=== PATIENT | male | born 1970 | race Caucasian/White ===

== ENCOUNTER → 2017-12-29 | Outpatient (CLI) | payer OTHER | END | disposition home or self-care (01) | LOC: LAB 18:53 | PROVIDERS: ATTEND Family Medicine | DX: R06.02 Shortness of breath (principal) | CPT/HCPCS: 36415; 85379 ==

== ENCOUNTER → 2018-12-02 | Outpatient (CLI) | payer OTHER ==
[~2018-12-02] MED LIST: IOHEXOL 240 MG/ML 50ML VIAL. ONE
[2018-12-02 13:50] LABS: CREATININE 0.8 mg/dL (0.7-1.3); GFR 103.6
[2018-12-02] MEDS: IOHEXOL 300 MG/ML 75 ML VIAL. IV ONE (14:20)
--- NOTE | 2018-12-02 14:36 | RAD ---
PQRS Compliance Statement: One or more of the following individualized dose reduction techniques were utilized for this examination: 1. Automated exposure control 2. Adjustment of the mA and/or kV according to patient size 3. Use of iterative reconstruction technique CT abdomen/pelvis with contrast 12/02/2018 2:18 PM INDICATION: Abdominal pain with nausea and vomiting. COMPARISON: None available TECHNIQUE: Multiple axial CT images of the abdomen and pelvis were obtained after the intravenous administration of 75 mL Omnipaque 300. Coronal and sagittal reformats are provided. FINDINGS: Visualized portions of the lung bases are clear. Heart size is within normal limits. No suspicious hepatic masses are identified. Liver is homogeneous in enhancement. Spleen, bilateral adrenal glands, and pancreas are normal in appearance. Gallbladder is present without adjacent inflammatory changes. The abdominal aorta is normal in course and caliber. There are no pathologically enlarged lymph nodes in the abdomen and pelvis. There is no abdominal free fluid. There is no free intraperitoneal air. The kidneys enhance symmetrically. There is mild left hydronephrosis. There is a 2 mm calculus at the left ureterovesicular junction. No additional calculi are identified. Oral contrast was administered. Opacified bowel loops demonstrate normal mucosal fold pattern. Small and large bowel are normal in caliber. There is no evidence for bowel obstruction. There are no pericolonic inflammatory changes. A normal, nondilated appendix is visualized without adjacent inflammatory changes. Prostate and urinary bladder within normal limits. Seminal vesicles are present. No suspicious osseous abnormality is identified. IMPRESSION: There is a 2 mm calculus at the left ureterovesicular junction. There is mild left hydronephrosis. Electronically signed by: Lucy Silver MD (12/02/2018 2:32 PM) [id number]
== END | disposition home or self-care (01) ==
LOC: CT 13:13
PROVIDERS: ATTEND Nurse Practitioner Family
DX: N13.2 Hydronephrosis with renal and ureteral calculous obstruction (principal); I10 Essential (primary) hypertension; E11.65 Type 2 diabetes mellitus with hyperglycemia; K52.89 Other specified noninfective gastroenteritis and colitis
CPT/HCPCS: 36415; 74177; 82565; 84520; Q9966; Q9967

== ENCOUNTER 2019-06-08 08:26 | Inpatient (IN) | payer OTHER ==
[~2019-06-08] VITALS: Ht 196.8 cm; Wt 91.8 kg
--- NOTE | 2019-06-08 08:30 | NUR ---
The patient, TERENCE SNOW, 49 y/o, M admitted by FERNANDO MAJOR MD, DIRECTLY d/t abdominal pain. Pt stated pain started on Friday, at which time pt went to an emergency room and was discharged (no further information at this time). Pt began having coffee ground emesis on Friday, and became aware of emesis and called Dr. Major on Friday morning. Dr. Major directly admitted pt to at that time. Pt brought to 105, accompanied by , in a WC by Dee Dee at approx [phone]. Pt settled into bed, A&Ox4, pain of 5/10 to abdomen for which Dr. Major ordered Fentanyl 50mcg IVP q2. Pt was given written information regarding hospital policies, unit procedures and contact persons. Sylwia Andrew RN
[2019-06-08 08:44] VITALS: BP 125/83
[2019-06-08 09:36] LABS: BASO % 1 % (0-3); EOS # 0.1 x10^3/uL (0.0-0.7); EOS % 2 % (0-3); HEMATOCRIT 44.4 % (39.0-53.0); LYMPH # 1.4 x10^3/uL (1.0-4.8); LYMPH % 17 % (24-48); MEAN CORPUSCULAR HEMOGLOBIN 31 pg (25-35); MEAN CORPUSCULAR HGB CONC 34 g/dL (31-37); MEAN CORPUSCULAR VOLUME 92 fL (79-100); MONO # 0.7 x10^3/uL (0.0-1.1); MONO % 9 % (0-9); NEUT # 6.1 x10^3uL (1.8-7.7); NEUT % 72 % (31-73); PLATELET COUNT 224 x10^3/uL (140-400); RED BLOOD COUNT 4.85 x10^6/uL (4.30-5.70); RED CELL DISTRIBUTION WIDTH 13.8 % (11.5-14.5); WHITE BLOOD COUNT 8.4 x10^3/uL (4.0-11.0)
[2019-06-08 09:52] LABS: ALBUMIN 3.8 g/dL (3.4-5.0); ALBUMIN/GLOBULIN RATIO 1.2 (1.0-1.7); CALCIUM 9.6 mg/dL (8.5-10.1); CREATININE 1.1 mg/dL (0.7-1.3); GFR 71.4; POTASSIUM 4.4 mmol/L (3.5-5.1); TOTAL BILIRUBIN 0.8 mg/dL (0.2-1.0)
[2019-06-08] MEDS ORDERED: PANTOPRAZOLE IV 80 MG in IV NORMAL SALINE 100ML 100 ML IV SCH (10:00)
[2019-06-08] MEDS ORDERED: IOHEXOL 350 MG/ML 100 ML VIAL. IV ONE (10:00)
[2019-06-08 11:25] LABS: BILIRUBIN,URINE NEG (NEG); CLARITY,URINE CLEAR; COLOR,URINE YELLOW; GLUCOSE,URINE NEG (NEG); NITRITE,URINE NEG (NEG); RBC,URINE OCC /HPF (0-2); UROBILINOGEN,URINE 0.2 mg/dL (0.2 mg/dL)
[2019-06-08 11:26] LABS: BACTERIA,URINE 0 /HPF (0-FEW); SQUAMOUS EPITHELIAL CELL,UR OCC /LPF
[2019-06-08] MEDS: IV NORMAL SALINE 1,000ML 1,000 ML IV SCH ×2 (11:31→18:28)
--- NOTE | 2019-06-08 12:19 | NUR ---
Results not yet back for URGENT CT. Called Myrtle in Radiology, she will check on status. MOO. Sylwia Andrew RN
--- NOTE | 2019-06-08 12:52 | RAD ---
Examination: CT ANGIO CHEST ABD PELVIS History: Abdominal pain, nausea, vomiting Comparison/Correlation: 12/02/2018 CT abdomen and pelvis with oral contrast Findings: Axial images of chest, abdomen, and pelvis were obtained following IV contrast. Sagittal and coronal reformatted images were provided. Dobbhoff tube tip terminates approximately 5.5 cm past the gastroesophageal junction. Sternal wires are present. No infiltrate or pleural effusion. No pneumothorax. Tracheobronchial tree is unremarkable. Calcified granulomas involve the costophrenic sulci. No enlarged thoracic lymph nodes. Thoracic aorta is unremarkable. Pulmonary arterial vasculature is very well-opacified with no findings of thromboembolic disease. No pulmonary nodule or mass. No pleural or pericardial effusion. Liver, spleen, pancreas, and adrenal glands are normal. Subtle hypoenhancement of the right and left renal cortices superiorly noted. No mass lesion or loculated collection. No hydronephrosis or hydroureter. No enlarged abdominal or pelvic lymph nodes. Moderate quantity of stool in the colon noted. Appendix is normal. No bowel obstruction. Diverticulosis of the colon is present without acute inflammation. Urinary bladder is unremarkable. Prostate gland is mildly enlarged measuring 5 cm transverse. Bony structures are unremarkable. Bone island involves the proximal left femur. Impression: Hypoenhancement of the renal cortices superiorly in particular. This is of indeterminate significance. Correlate for underlying inflammatory process including pyelonephritis. No loculated collection or mass. Diverticulosis. No infiltrate. PQRS Compliance Statement: One or more of the following individualized dose reduction techniques were utilized for this examination: 1. Automated exposure control 2. Adjustment of the mA and/or kV according to patient size 3. Use of iterative reconstruction technique Electronically signed by: Armando Paz MD (06/08/2019 12:49 PM) [facility]
--- NOTE | 2019-06-08 13:00 | NUR ---
Dr. Chaparro notified via telephone of results for CT. Sylwia Andrew RN
[2019-06-08 16:06] VITALS: BP 142/92
[2019-06-08] MEDS ORDERED: INSULIN LISPRO 300 UNITS/3 ML INSULN.PEN. SQ SCH (17:00)
[2019-06-08] MEDS ORDERED: DEXTROSE 50% 25 GM / 50ML DISP.SYRIN. IV PRN (17:00)
[2019-06-08 17:45] LABS: GASTRIC OB PAT POSITIVE (NEG)
[2019-06-08] MEDS ORDERED: PROCHLORPERAZINE 10 MG/2 ML VIAL. IV PRN (17:45)
[2019-06-08 19:13] VITALS: BP 147/93
--- NOTE | 2019-06-08 21:50 | NUR ---
PT transferred to [facility] for higher level of care. PT calm and cooperative at time of discharge. will meet PT at [facility] with DM medications not available at [facility]. Mi and NG tube removed prior to transport. PT only on NS at 200/hr.
[2019-06-09] MEDS ORDERED: PANTOPRAZOLE 40 MG TABLET. PO SCH (07:30)
--- NOTE | 2019-06-09 12:55 | DS ---
DATE OF DISCHARGE: 06/08/2019 HOSPITAL COURSE: A 49-year-old male who has been ill for the last week with abdominal pain and had been seen in the Emergency Room at [facility], told me he had a ventral hernia and that he was in lot of pain, but no obstruction; however, the pain got increasingly worse. He was doubled over with pain with nausea and vomiting, unable to keep anything down and was also bringing up bloody material. As a result of this, the patient was seen and admitted to the hospital for further evaluation and treatment thereof of that situation. An NG tube was placed. He also had trouble urinating. Bladder scan showed 800 mL in his bladder, so we put a Mi catheter in as well. The patient along with IV Protonix and fluids, rehydrated and we felt him somewhat better, but still had bouts of nausea and vomiting. Consequently, he was transferred to another facility and they could offer him GI clearance that we did not have here. Otherwise, the patient made relatively good progress. He remained basically stable in terms of his vital signs. He had a slightly low iron of 61. Blood sugars were up and down and around. He did have gastric occult blood positive. The patient was stabilized and transferred to [facility] for Gastroenterology Consultation IMPRESSION: Acute gastrointestinal bleed, epigastric pain progressively worse. PLAN: As above. Continue to monitor the patient after he returns and continue on home medications as indicated per those results. He was having n.p.o. when he left. FERNANDO MAJOR MD DR: KENISHA/agustin JOB#: [id number] / [id number]
--- NOTE | 2019-06-09 13:42 | EKG ---
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
== END 2019-06-08 21:35 | disposition short-term general hospital (02) | DRG 379 ==
LOC: 1 SOUTH 08:26
PROVIDERS: ADMIT Family Medicine; ATTEND Family Medicine
DX: K92.2 Gastrointestinal hemorrhage, unspecified (principal); K43.9 Ventral hernia without obstruction or gangrene; Z79.899 Other long term (current) drug therapy; Z88.0 Allergy status to penicillin; Z88.8 Allergy status to other drugs, medicaments and biological substances
CPT/HCPCS: 36415; 71275; 74174; 80053; 81001; 82150; 82271; 82947; 83540; 83550; 83605; 84145; 85025; 85379; 85610; 86850; 86900; 86901; 93005; C9113; J0780; J1815; J3010; Q9967; J7030

== ENCOUNTER → 2020-05-15 | Outpatient (CLI) | payer OTHER ==
--- NOTE | 2020-05-15 15:57 | RAD ---
CT SOFT TISSUE NECK WO CONTRST Indication: Abnormal thyroid function tests, dysphagia Technique: Postcontrast CT imaging was performed of the neck, multiplanar reconstruction images submitted. One or more of the following individualized dose reduction techniques were utilized for this examination: 1. Automated exposure control 2. Adjustment of the mA and/or kV according to patient size 3. Use of iterative reconstruction technique. Comparison: Chest CT June 08, 2019 Findings: Thyroid gland is homogeneous although enlarged without significant focal mass or tracheal deviation. There is right upper lobe lung nodule near the apex about 0.9 cm similar to previous recent chest CT exam, has slightly irregular borders. No significantly enlarged nodes are identified small scattered nodes bilaterally. There is preservation of the parapharyngeal fat planes. The visualized paranasal sinuses are mostly aerated other than mild anterior left ethmoid air cell mucosal thickening. Mastoid air cells are aerated. There is degenerative disc disease greatest C5-6 and C6-7, also spondylosis at these levels. There is likely central canal stenosis about 8 to 9 mm at C5-6 and likely on the order of about 7-8 mm at C6-7. IMPRESSION: 1. No discrete thyroid mass is identified by this exam although there is thyromegaly, no tracheal deviation. 2. There is again right upper lobe lung nodule near the apex with slightly irregular borders. Continued surveillance in 6-12 months is recommended. 3. There is cervical degenerative disc disease and spondylosis greatest at C5-6 and C6-7 at which there is degree of spinal stenosis. Electronically signed by: Sukhdev Youngblood MD (05/15/2020 3:54 PM) [id number]
== END | disposition home or self-care (01) ==
LOC: CT 15:13
PROVIDERS: ATTEND Family Medicine
DX: E01.0 Iodine-deficiency related diffuse (endemic) goiter (principal); R94.6 Abnormal results of thyroid function studies; R13.10 Dysphagia, unspecified; R91.1 Solitary pulmonary nodule; M50.30 Other cervical disc degeneration, unspecified cervical region; M47.812 Spondylosis without myelopathy or radiculopathy, cervical region
CPT/HCPCS: 70490

== ENCOUNTER 2021-03-12 20:53 | Emergency (ER) | payer OTHER ==
[~2021-03-12] VITALS: Ht 195.6 cm; Wt 89.5 kg
--- NOTE | 2021-03-12 21:17 | PHYS DOC ---
General Adult EDM: Chief Complaint: BLURRED/DOUBLE VISION HPI: HPI: Patient is a 50-year-old male who presents with double vision. Patient states he was at his daughter's house playing PlayStation with his grandson, when he started having double vision and could not track the screen. Patient states his daughter drove him home and then called EMS. Patient states that he is recently started having seizures and has been seeing neurology. Patient has had ECG and MRI last Friday. Patient was supposed to meet with neurology today for results but had to have the appointment canceled and supposed to be meeting for results tomorrow. Patient denies chest pain, headaches, shortness of breath, weakness. Patient states "I just feel like I am kind of in a fog". "I do not have shaking seizures I just kind of blackout". Patient denies all other medical history. (RAMIREZ ROD APRN) Review of Systems: Review of Systems: Constitutional: Denies fever or chills Eyes: Reports blurry vision HENT: Denies nasal congestion or sore throat Respiratory: Denies cough or shortness of breath Cardiovascular: Denies chest pain or edema GI: Denies abdominal pain, nausea, vomiting, bloody stools or diarrhea : Denies dysuria Musculoskeletal: Denies back pain or joint pain Integument: Denies rash Neurologic: Denies headache, focal weakness or sensory changes Endocrine: Denies polyuria or polydipsia Lymphatic: Denies swollen glands Psychiatric: Denies depression or anxiety (RAMIREZ ROD APRN) Allergies: Allergies: Allergies Coded Allergies Type Severity Reaction Last Updated Verified Penicillins Allergy Intermediate 03/12/21 Yes levofloxacin Adverse Reaction Severe Hallucinations 03/12/21 Yes ondansetron Adverse Reaction Severe Hallucinations 03/12/21 Yes (RAMIREZ ROD PIPE FITTER AMMONIA) Physical Exam: PE: Constitutional: Well developed, well nourished, no acute distress, non-toxic appearance. [] HENT: Normocephalic, bilateral external ears normal, oropharynx moist, no oral exudates, nose normal. [] Eyes: PERRLA, blurry vision, conjunctiva normal, no discharge. [] Neck: Normal range of motion, no tenderness, supple, no stridor. [] Cardiovascular:Heart rate regular rhythm, no murmur [] Lungs & Thorax: Bilateral breath sounds clear to auscultation [] Abdomen: Bowel sounds normal, soft, no tenderness, no masses Skin: Warm, dry, no erythema, no rash. [] Back: No tenderness, no CVA tenderness. [] Extremities: No tenderness, no cyanosis, ROM intact, no edema. [] Neurologic: Alert and oriented X 3, normal motor function, normal sensory function, no focal deficits noted. [] Psychologic: Affect normal, judgement normal, mood normal. [] (RAMIREZ ROD APRN) EKG: EKG: [] (RAMIREZ ROD APRN) Radiology/Procedures: Radiology/Procedures: []CT HEAD/BRAIN WO Date: 03/12/2021 9:17 PM Clinical Indication: Reason: BLURRED VISION, weakness, light sensitivity / Spl. Instructions: / History: Comparison: None. Technique: 5 mm axial tomographic images were obtained of the head without contrast. These were viewed on brain and bone windows. One or more of the following dose reduction techniques were utilized: Automated exposure control (AEC), Adjustment of mA and/or kV according to patient size, Use of iterative reconstruction technique such as ASiR, CT scan done according to ALARA and image gently/image wisely Findings: The brain parenchyma is normal in attenuation. No intra- or extra-axial mass or fluid collection. No acute hemorrhage. The ventricles are normal in size, shape, and morphology. The sexton-white matter junction is normal. The subarachnoid cisterns are patent. The visualized paranasal sinuses are normal. The visualized portions of the orbits and globes are normal. The mastoid air cells are clear. The bag making machine operator topogram shows no lytic lesion or fracture. Impression: No acute intracranial process. Electronically signed by: Sukhdev Sauceda MD (03/12/2021 9:26 PM) [facility] (RAMIREZ ROD APRN) Heart Score: C/O Chest Pain: No Risk Factors: Risk Factors: DM, Current or recent (<one month) smoker, HTN, HLP, family history of CAD, obesity. Risk Scores: Score 0 - 3: 2.5% MACE over next 6 weeks - Discharge Home Score 4 - 6: 20.3% MACE over next 6 weeks - Admit for Clinical Observation Score 7 - 10: 72.7% MACE over next 6 weeks - Early Invasive Strategies (RAMIREZ ROD APRN) Course & Med Decision Making: Course & Med Decision Making Pertinent Labs and Imaging studies reviewed. (See chart for details) [] 50-year-old male who presents with EMS for double vision. Patient is recently being seen by neurology for seizures. Patient had an MRI last week and was just to have results today. Patient states he was sitting and playing PlayStation when all of a sudden his vision went blurry and he feels foggy. CT of head ordered to rule out intracranial bleeding. CT of head negative for any acute abnormalities. All labs unremarkable. Troponin is negative. Visual acuity right eye, left eye 20/25. Both eyes 20/15. Patient's headache most likely caused visual changes. Patient instructed to follow-up with PCP tomorrow. Patient states that he has an appointment with neurology tomorrow for MRI results. Patient is hemodynamically stable. He is okay with discharge plan. (RAMIREZ ROD APRN) Dragon Disclaimer: Dragon Disclaimer: This electronic medical record was generated, in whole or in part, using a voice recognition dictation system. (RAMIREZ ROD APRN) Attending Co-Sign The patient was seen and interviewed as well as examined at the bedside. The chart was reviewed. The case was discussed. Agree with the plan of care. (LES PEREZ DO) Departure Departure: Impression: Primary Impression: Blurry vision Additional Impression: Headache Qualified Codes: R51.9 - Headache, unspecified Disposition: 01 HOME / SELF CARE / HOMELESS Condition: STABLE Referrals: FERNANDO MAJOR MD (PCP) Patient Instructions: Eye - Blurred Vision Additional Instructions: You are seen in the emergency room tonight for blurry vision. All of your labs came back unremarkable. CT of your head was negative for any acute abnormalities. Please follow-up with neuro tomorrow regarding your MRI results and further management. Please return to the emergency room with worsening symptoms or concerns. EMERGENCY DEPARTMENT GENERAL DISCHARGE INSTRUCTIONS Thank you for coming to [facility] (ED) today and trusting us with you care. We trust that you had a positivie experience in our Emergency Department. If you wish to speak to the department management, you may call the director at [phone]. YOUR FOLLOW UP INSTRUCTIONS ARE FOLLOWS: 1. Do you have a private Doctor? If you do not have a private doctor, please ask for a resource list of physicians or clinics that may be able to assist you with follow up care. 2. The Emergency Physician has interpreted your x-rays. The X-Ray specialist will also review them. If there is a change in the findings, you will be notified in 48 hours when at all possible. 3. A lab test or culture has been done, your results will be reviewed and you will be notified if you need a change in treatment. ADDITIONAL INSTRUCTIONS AND INFORMATION: 1. Your care today has been supervised by a physician who is specially trained in emergency care. Many problems require more than one evaluation for a complete diagnosis and treatment. We recommend that you schedule your follow up appointment as recommended to ensure complete treatment of you illness or injury. If you are unable to obtain follow up care and continue to have a problem, or if your condition worsens, we recommend that you return to the ED. 2. We are not able to safely determine your condition over the phone nor are we able to give sound medical advice over the phone. For these safety reasons, if you call for medical advice we will ask you to come to the ED for further evaluation. 3. If you have any questions regarding these discharge instructions please call the ED at [phone]. SAFETY INFORMATION: In the interest of safety, wellness, and injury prevention; we encourage you to wear your sealbelt, if you smoke; quite smoking, and we encourage family to use a protective helmet for bicycling and other sporting events that present an increased risk for head injury. IF YOUR SYMPTOMS WORSEN OR NEW SYMPTOMS DEVELOP, OR YOU HAVE CONCERNS ABOUT YOUR CONDITION; OR IF YOUR CONDITION WORSENS WHILE YOU ARE WAITING FOR YOUR FOLLOW UP APPOINTMENT; EITHER CONTACT YOUR PRIMARY CARE DOCTOR, THE PHYSICIAN WHOSE NAME AND NUMBER YOU WERE GIVEN, OR RETURN TO THE ED IMMEDIATELY. RAMIREZ ROD APRN March 12, 2021 21:17 LES PEREZ DO March 13, 2021 00:31
--- NOTE | 2021-03-12 21:28 | RAD ---
CT HEAD/BRAIN WO Date: 03/12/2021 9:17 PM Clinical Indication: Reason: BLURRED VISION, weakness, light sensitivity / Spl. Instructions: / Hist ory: Comparison: None. Technique: 5 mm axial tomographic images were obtained of the head without contrast. These were view ed on brain and bone windows. One or more of the following dose reduction techniques were utilized: A utomated exposure control (AEC), Adjustment of mA and/or kV according to patient size, Use of iterati ve reconstruction technique such as ASiR, CT scan done according to ALARA and image gently/image aldana ly Findings: The brain parenchyma is normal in attenuation. No intra- or extra-axial mass or fluid collection. No acute hemorrhage. The ventricles are normal in size, shape, and morphology. The sexton-white matter sherrill ction is normal. The subarachnoid cisterns are patent. The visualized paranasal sinuses are normal. The visualized portions of the orbits and globes are no rmal. The mastoid air cells are clear. The oyster cultivator topogram shows no lytic lesion or fracture. Impression: No acute intracranial process. Electronically signed by: Sukhdev Sauceda MD (03/12/2021 9:26 PM) [facility]
[2021-03-12 22:30] LABS: BASO # 0.1 x10^3/uL (0.0-0.2); BASO % 1 % (0-3); EOS # 0.3 x10^3/uL (0.0-0.7); EOS % 4 % (0-3); HEMATOCRIT 43.4 % (39.0-53.0); LYMPH # 2.5 x10^3/uL (1.0-4.8); LYMPH % 33 % (24-48); MEAN CORPUSCULAR HEMOGLOBIN 31 pg (25-35); MEAN CORPUSCULAR HGB CONC 35 g/dL (31-37); MEAN CORPUSCULAR VOLUME 91 fL (79-100); MONO # 0.5 x10^3/uL (0.0-1.1); MONO % 7 % (0-9); NEUT # 4.1 x10^3uL (1.8-7.7); NEUT % 55 % (31-73); PLATELET COUNT 232 x10^3/uL (140-400); RED BLOOD COUNT 4.77 x10^6/uL (4.30-5.70); RED CELL DISTRIBUTION WIDTH 12.9 % (11.5-14.5); WHITE BLOOD COUNT 7.4 x10^3/uL (4.0-11.0)
[2021-03-12] MEDS ORDERED: IV NORMAL SALINE 1,000ML 1,000 ML IV ONE (22:30)
[2021-03-12] MEDS ORDERED: KETOROLAC 15 MG/ML VIAL. IVP ONE (22:30)
[2021-03-12 22:35] LABS: CALCIUM 9.3 mg/dL (8.5-10.1); CREATININE 0.9 mg/dL (0.7-1.3); GFR 89.7; POTASSIUM 3.8 mmol/L (3.5-5.1)
[2021-03-12 22:41] LABS: ALBUMIN 3.9 g/dL (3.4-5.0); ALBUMIN/GLOBULIN RATIO 1.5 (1.0-1.7); TOTAL BILIRUBIN 0.5 mg/dL (0.2-1.0); TOTAL PROTEIN 6.5 g/dL (6.4-8.2)
[2021-03-12 23:11] VITALS: BP 133/75
--- NOTE | 2021-03-12 23:29 | EKG ---
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
== END 2021-03-12 23:40 | disposition home or self-care (01) ==
LOC: ER 20:53
DX: H53.2 Diplopia (principal); H53.8 Other visual disturbances; R51.9 Headache, unspecified; Z88.0 Allergy status to penicillin; Z88.1 Allergy status to other antibiotic agents; Z88.8 Allergy status to other drugs, medicaments and biological substances
CPT/HCPCS: 36415; 70450; 80053; 84484; 85025; 93005; 96361; 96374; 99285; J1885; J7030